=== PATIENT | female | born 1980 | race Caucasian/White ===

== ENCOUNTER 2024-10-26 22:16 | Emergency (ER) | payer OTHER ==
[~2024-10-26] VITALS: Ht 160 cm; Wt 128.8 kg
[~2024-10-26 22:16] MED LIST: AMOXICILLIN500 MG PO; ANAPROX DS550 MG PO; ATIVAN0.5 MG PO; B121000 MCG/1 IM; CIPRO500 MG PO; CLARITIN10 MG PO; CORTISPORIN 1%-10 M1 OT; FLONASE ALLERG9.9 ML NAS; FOLIC ACID20 MG PO; HYDROCODONE BIT1 T11 PO; MOTRIN800 MG PO; NAPROSYN500 MG PO; NKHM; PENICILLIN VK500 MG PO; PREDNISONE10 MG PO; Peridex 473 ML473 ML PO; ROBITUSSIN AC 110 ML PO; TOPAMAX100 M1 PO; TOPAMAX50 MG PO; TRIMOX500 MG PO; VICODIN 5/500 505 MG PO; VICODIN 500 MG-1 TAB PO; VOLTAREN50 M1 PO; ZOVIRAX800 MG PO
[2024-10-26 22:56] LABS: BASO % 0.3 % (0.0-1.0); EOS # 0.1 10*3/uL (0.0-0.4); EOS % 1.5 % (1.0-4.0); HEMATOCRIT 41.4 % (37.0-47.0); MEAN CELL VOLUME 88.5 fl (81.0-99.0); MEAN CORPUSCULAR HGB 29.1 pg (27.0-31.0); MEAN CORPUSCULAR HGB CONC 32.9 g/dl (33.0-37.0); MEAN PLATELET VOLUME 9.1 fl (9.6-12.3); MONO # 0.4 10*3/uL (0.1-1.0); MONO % 5.2 % (3.0-9.0); NEUT # 4.5 10*3/uL (2.3-7.9); NEUT % 60.7 % (47.0-73.0); PLATELET COUNT AUTOMATED 311 10*3/uL (130-400); RED BLOOD COUNT 4.68 10*6/uL (4.10-5.10); RED CELL DISTRI WIDTH 13.8 % (0-14.5); WHITE BLOOD COUNT 7.3 10*3/uL (4.8-10.8)
[2024-10-26 23:15] LABS: BUN 11 mg/dl (9-23); CHLORIDE 105 mmol/L (98-107); POTASSIUM 3.7 mmol/L (3.4-5.1)
[2024-10-26] MEDS ORDERED: PREDNISONE20 M1 PO (23:19)
[2024-10-26] MEDS ORDERED: SEPTDS PO (23:19)
== END 2024-10-26 23:46 | disposition home or self-care (01) ==
LOC: ED 22:16
PROVIDERS: Internal Medicine
DX: R21 Rash and other nonspecific skin eruption (principal); L03.115 Cellulitis of right lower limb; Z90.49 Acquired absence of other specified parts of digestive tract; Z98.890 Other specified postprocedural states; Z98.51 Tubal ligation status